=== PATIENT | female | born 1990 | race African-American/Black ===

== ENCOUNTER → 2021-04-30 | Outpatient (CLI) | payer OTHER | LOC: COL.RAD 12:25 | DX: M50.30 Other cervical disc degeneration, unspecified cervical region (principal); M40.40 Postural lordosis, site unspecified; M54.12 Radiculopathy, cervical region | CPT/HCPCS: A9585 ==

== ENCOUNTER → 2021-05-01 | Outpatient (CLI) | payer OTHER | LOC: COL.CARD 12:31 | DX: R41.89 Other symptoms and signs involving cognitive functions and awareness (principal); M79.601 Pain in right arm; M79.602 Pain in left arm; R68.89 Other general symptoms and signs; R74.8 Abnormal levels of other serum enzymes ==